=== PATIENT | female | born 1960 | race Caucasian/White ===

== ENCOUNTER 2023-07-08 14:45 | Outpatient (AMB) | payer MEDICARE, SELFPAY ==
--- NOTE | 2023-07-08 14:50 | MHC.OFFWIV ---
Intake Vital Signs 07/08/23 14:52 Height 5 ft 4 in Weight 74.389 kg BMI 28.1 BP 130/70 Blood Pressure Location Lt brachial Position Sitting Pulse 82 Pulse Source Pulse Oximeter Temp 97.5 F Temp Source Temporal Artery Scan Pulse Oximetry (%) 98 Oxygen Delivery Method Room Air Intake Visit Reasons: [employer]ER RT Eye irritation Intake Note: pt is here today for rt eye irritation started 3 days ago Patient Tobacco Use Status: Never used Tobacco Allergies No Known Allergies Allergy (Verified 07/08/23 14:51) Do you need a note to return to daycare/school/sports/work: No HPI HPI Comments History of Present Illness Details 63-year-old female presents with a right irritated eye patient reports burning to the right eye. Patient reports it may have started after using a new facial hall cleaner. She reports it feels like there is something in her eye. Particularly uncomfortable when she moves her eye feels like something may be scratching. N, changes in vision, actual eye pain, trauma, fevers, chills, headache, neck pain, nausea, vomiting, abdominal pain, chest pain or shortness breath. Patient does not wear contacts Physical exam with right-sided eye conjunctivitis. Extraocular movements intact and pain-free. History and physical exam concerning for conjunctivitis. Unlikely corneal abrasion, acute closed angle glaucoma, wet macular degeneration, globe rupture. No signs of orbital or periorbital cellulitis Fluorescein stain does show small abrasions to the cornea in the inferior aspect of eye/6 o'clock position likely secondary to patient's scratching. No signs of foreign body. Negative Hilaria sign. Plan erythromycin ointment and discharged home. Educated patient on diagnosis and treatment plan, answered all question, patient verbalizes understanding. At this time patient will be discharged home, advised to return with new or worsening symptoms. Educated on worrisome signs and symptoms and when to return. At this time I feel comfortable discharge home. [facility] Social History Patient Tobacco Use Status: Never used Tobacco Review of Systems Const All systems reviewed & are unremarkable except as noted in HPI and below Physical Exam Vital Signs: Last Vital Signs Temp 97.5 F 07/08/23 14:52 Pulse 82 07/08/23 14:52 BP 130/70 07/08/23 14:52 Pulse Ox 98 07/08/23 14:52 Oxygen Delivery Method Room Air 07/08/23 14:52 BMI result Body Mass Index 28.1 Vital signs stable Appearance: Alert.? Oriented X3.? No acute distress.? Head: Normocephalic, atraumatic, no step-offs or deformities Eyes: Pupils equal, round and reactive to light.? Conjunctivitis right eye. Extraocular movements intact and pain-free. ENT: Pharynx normal.? Neck: Normal inspection.? Neck supple.? CVS: ? Pulses normal.? Respiratory: No respiratory distress.? Skin: Skin warm and dry.? Normal skin color.? Normal skin turgor.? Extremities: No lower extremity edema.? No calf ttp. 5/5 strength to bilateral upper and lower extremities Neuro: Oriented X 3.? No motor deficit.? No sensory deficit. CN 2-12 intact Assessment & Plan Assessment & Plan (1) Conjunctivitis: Code(s): H10.9 - Unspecified conjunctivitis Plan Take your medications as prescribed. If you were prescribed antibiotics today, it is important that you take your medication to their entirety, do not skip any doses, do not finish them early. Follow-up with your primary care provider this week. Return to the emergency department with new or worsening symptoms. Such as fevers, chills, chest pain, shortness of breath, nausea, vomiting, dizziness, headache, vision changes, lethargy In case of emergency call 911 Medications: New erythromycin 0.5 inches ophthalmic (eye) TID 3.5 grams 0RF 7 days Coding Level of Care Code New Pt Level 3 (25059) Diagnoses Conjunctivitis H10.9
[2023-07-08 14:52] VITALS: BP 130/70; PULSE 82; TEMP 36.4; O2SAT 98; BMI 28.1
== END 2023-07-08 15:47 | disposition home or self-care (01) ==
PROVIDERS: Visit Provider Physician Assistant
DX: H10.9 Unspecified conjunctivitis (principal)
CPT/HCPCS: 99203

== ENCOUNTER 2023-10-18 10:02 | Outpatient (AMB) | payer MEDICARE, SELFPAY ==
--- NOTE | 2023-10-18 10:07 | MHC.PC.OV ---
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 Intake Note: New patient visit Outreach Rep Required: No Allergies No Known Allergies Allergy (Verified 10/18/23 10:07) Medication List - Last Reconciled 10/18/23 by Nelida Alvarez MD rosuvastatin 5 mg PO BEDTIME Tobacco use date assessed: 10/18/23 Fall risk assessment: No Falls in past year Last assessed Fall Risk: 10/18/23 Dental Screening Dental Screen Date: 10/18/23 Did you have a dental visit in the last 12 months?: Yes Did you have a dental problem in the last 6 months where you did not have access to dental care?: No Was dental information given to patient?: Patient has dentist HPI HPI Comments History of Present Illness Details 63 y/o presenting to establish care. In the area for undetermined amount of time. Visiting mom. Lives in [place] She is due for her mammogram HLD-On crestor 5mg daily Says utroyal colon screeening [facility] Family History (Updated 10/18/23 @ 10:12 by Layne Padilla CMA) Other Substance use Social History (Updated 10/18/23 @ 10:11 by Layne Padilla CMA) Housing: House Patient Tobacco Use Status: Former Tobacco user Years Smoked: 30, Quit 20 years ago e-Cigarette/Vaping Use: Never Used Second Hand Smoke Exposure: No Use of substances other than those prescribed or required for medical reasons: No service: No Current occupational status: employed Current occupation: [employer] Current occupational exposures/hazards: No Cognitive needs: No Hearing needs: No Vision needs: Yes (needs eye exam) Questionnaire AUDIT C Alcohol Use Questionnaire (AUDIT-C) 1. How often do you have a drink containing alcohol?: 4 or more times a week 2. How many drinks containing alcohol do you have on a typical day when you are drinking?: 1 or 2 3. How often do you have six or more drinks on one occasion?: Never Total Score: 4 Review of Systems Const Details: ROS CONSTITUTIONAL: Denies weight loss, fever and chills. HEENT: Denies changes in vision and hearing. RESPIRATORY: Denies SOB and cough. CV: Denies palpitations and CP GI: Denies abdominal pain, nausea, vomiting and diarrhea. : Denies dysuria and urinary frequency. MSK: Denies new myalgia and joint pain. SKIN: Denies rash and pruritus. NEUROLOGICAL: Denies headache PSYCHIATRIC: Denies recent changes in mood. Physical exam (Primary Care) Vital Signs: Last Vital Signs Temp 98.4 F 10/18/23 10:12 Pulse 75 10/18/23 10:12 Resp 14 10/18/23 10:12 BP 130/64 10/18/23 10:12 Pulse Ox 98 10/18/23 10:12 Oxygen Delivery Method Room Air 10/18/23 10:12 PHYSICAL EXAM: GENERAL: Alert and oriented x 3. NAD EYES: EOMI. Anicteric. HENT: Moist mucous membranes. No scleral icterus. No cervical lymphadenopathy. LUNGS: Clear to auscultation bilaterally. CARDIOVASCULAR: Regular rate and rhythm. No murmur. No JVD. ABDOMEN: Soft, non-tender +bs EXTREMITIES: No edema. Non-tender. SKIN: No rashes or lesions. Warm. NEUROLOGIC: No focal neurological deficits. CN II-XII grossly intact PSYCHIATRIC: Cooperative. Appropriate mood and affect BMI result Body Mass Index 28.7 Tobacco/Smoking Status: Tobacco use Status Tobacco use date assessed 10/18/23 10/18/23 10:18 Patient Tobacco Use Status Former Tobacco user 10/18/23 10:18 e-Cigarette/Vaping Use Never Used 10/18/23 10:18 Assessment and Plan Assessment & Plan (1) Hyperlipidemia: Code(s): E78.5 - Hyperlipidemia, unspecified Qualifiers: Hyperlipidemia type: mixed hyperlipidemia Qualified Code(s): E78.2 - Mixed hyperlipidemia (2) Encounter to establish care: Code(s): Z76.89 - Persons encountering health services in other specified circumstances Plan: 63 y/o to establish care. past medical, surgical, social reviewed. Coding Level of Care Code New Pt Level 3 (43627) Diagnoses Mixed hyperlipidemia E78.2 Hyperlipidemia type: mixed hyperlipidemia Encounter to establish care Z76.89
[2023-10-18 10:12] VITALS: BP 130/64; PULSE 75; RESP 14; TEMP 36.9; O2SAT 98; BMI 28.7
== END 2023-10-18 11:21 | disposition home or self-care (01) ==
PROVIDERS: PCP Internal Medicine; Visit Provider Internal Medicine
DX: E78.2 Mixed hyperlipidemia (principal); Z76.89 Persons encountering health services in other specified circumstances
CPT/HCPCS: 99203; 99213

== ENCOUNTER 2023-12-02 08:10 | Outpatient (REF) | payer MEDICARE, SELFPAY ==
--- NOTE | ~2023-12-02 | MM_ITS ---
EXAMINATION: MM SCREENING DIGITAL BREAST TOMOSYNTHESIS, BILATERAL CLINICAL INFORMATION: Screening. Asymptomatic. COMPARISON: Mammography: No prior mammograms for comparison. TECHNIQUE: Digital breast tomosynthesis is performed in both the craniocaudal and mediolateral oblique views along with computer-aided detection (CAD). Synthesized 2D images are generated from the tomosynthesis. FINDINGS: There are scattered areas of fibroglandular density (ACR BI-RADS breast composition Category b). There are no significant masses, abnormal calcifications, or other abnormalities. MM/MM tomosynthesis screening BI IMPRESSION: No mammographic evidence of malignancy. ASSESSMENT: BI-RADS BI-RADS 1 - Negative RECOMMENDATION: Routine annual mammography screening. 1 year F/U This examination should not preclude the clinical evaluation of a suspicious palpable abnormality. This patient's information was entered into a reminder system with a target due date for their next mammogram.
== END 2023-12-02 08:11 | disposition home or self-care (01) ==
LOC: HO.MAMMO 08:10
PROVIDERS: PCP Internal Medicine; Visit Provider Internal Medicine
DX: Z12.31 Encounter for screening mammogram for malignant neoplasm of breast (principal)
CPT/HCPCS: 77063; 77067

== ENCOUNTER → 2023-12-02 08:15 | Outpatient (BNV) | payer MEDICARE, SELFPAY | PROVIDERS: PCP Internal Medicine; Visit Provider Radiology Diagnostic Radiology | DX: Z12.31 Encounter for screening mammogram for malignant neoplasm of breast (principal) | CPT/HCPCS: 77063; 77067 ==